=== PATIENT | male | born 1970 | race African-American/Black ===

== ENCOUNTER → 2016-12-03 | Day surgery (SDC) | payer OTHER ==
[~2016-12-03] MED LIST: NO MEDICATIONS
--- NOTE | ~2016-12-03 | OR ---
Unit #: [id number] #: [id number] Patient: FISH AVENDANO [id number] [address] [place], [place] [address] [id number] O MR#: [id number] NAME: FISH AVENDANO ROOM: Date of Procedure: 12/03/2016 Admission Date: 12/03/2016 Surgeon: Martina Barcenas M.D. : 1970 Attending Physician: Martina Barcenas M.D. Primary Care Physician: Tg Gonzales M.D. OPERATIVE REPORT PREOPERATIVE DIAGNOSIS De Quervain tenosynovitis, right wrist. POSTOPERATIVE DIAGNOSIS De Quervain tenosynovitis, right wrist. PROCEDURE PERFORMED Release of de Quervain tenosynovitis, right wrist. INDICATION AND FINDINGS The patient is a 46-year-old male, who has been having progressively increasing pain in his right wrist, which has been interfering with his activities. Physical findings were suggestive of de Quervain tenosynovitis. He was treated conservatively with medications and bracing. He refused steroid injection and he continued to have persistent symptoms in spite of conservative treatment. He wanted to proceed with de Quervain release. He had a previous surgery done to his left wrist, so he did not want any injections. The risks of anesthesia and complications of surgery have been reviewed including infection, neurovascular injury, painful neuroma, residual symptoms need for any further surgery have been explained as well. The patient voices understanding and wishes to proceed. DESCRIPTION OF PROCEDURE After induction of general anesthesia, the right wrist and forearm were prepped and draped in the usual sterile manner. Time-out was called. Operative site was confirmed. Esmarch was applied. Tourniquet was inflated to 275 mm. A longitudinal incision approximately 2.5 cm was made at the level of the radial styloid of the right wrist, incision deepened down and by sharp dissection carried down to the subcutaneous tissue. Sharp and blunt dissection was carried to retract the cutaneous branch of the radial nerve and then the first dorsal compartment was evaluated and was found to be quite thick. It had to be incised, then blunt instrument was introduced into the canal, both proximally and distally releasing the first dorsal compartment. The tendons were found to be inflamed and there was some hypertrophic synovitis, which was excised and the compartment was evaluated for any tenderness, none was noticed. The thumb was taken through range of motion along with the wrist. No instability was elicited. So, at this point, the wound was copiously irrigated and the wound was approximated using 5-0 nylon. Sterile compression dressing was applied. Tourniquet was let down. Blood loss minimal. The patient received preop antibiotics, tolerated the procedure well, was transferred to the recovery room in satisfactory condition. Unit #: [id number] #: [id number] Patient: FISH AVENDANO POSTOPERATIVE INSTRUCTIONS 1. Ice packs to the right wrist and range of motion to the fingers. 2. [place] 7.5 mg p.o. q.6 hours p.r.n. 3. He was given a followup appointment to return to my office in 2 weeks. If any problems to contact me. Dictated by... Ricardo Duncan/gabriel TD: 12/04/2016 02:57 JOB #: [id number] OPERATIVE REPORT Page 1 of 1 X Martina Barcenas MD X PROCEDURE OPERATIVE NOTE
== END | disposition home or self-care (01) ==
LOC: CSUR 06:27
DX: M65.4 Radial styloid tenosynovitis [de Quervain] (principal); Z88.0 Allergy status to penicillin; Z98.890 Other specified postprocedural states
CPT/HCPCS: J0690; J1885; J2250; J2270; J2765